=== PATIENT | male | born 1960 | race Caucasian/White ===

== ENCOUNTER 2017-10-22 08:52 | Day surgery (SDC) | END 2017-10-22 12:34 | disposition home or self-care (01) ==

== ENCOUNTER 2019-02-22 17:37 | Inpatient (IN) | payer BC ==
[~2019-02-22] VITALS: Ht 167.6 cm; Wt 83.9 kg
[~2019-02-22 17:37] MED LIST: ATOR40TA68 PO; CLON-339 PO; NIFE100P MC; PANT40TA3 PO; PRED25 PO; TACR1CAP PO; VANCOMYCIN HCL 1.5 GM in SOD CHLORIDE 0.9% 250 ML IVPB SCH
[2019-02-22 17:50] VITALS: Ht 167.6 cm; Wt 83.9 kg
[2019-02-22] MEDS ORDERED: HYDROmorphONE 1 MG/ML SYG IV STA (19:30)
[2019-02-22] MEDS ORDERED: IBUPROFEN 600 MG TAB PO ONE (19:30)
[2019-02-22] MEDS ORDERED: ONDANSETRON 4 MG INJ IV STA (19:30)
[2019-02-22] MEDS ORDERED: CEFEPIME 1GM/50 ML (PMX) 50 ML IVPB ONE (19:30)
[2019-02-22] MEDS ORDERED: ENALAPRILAT 1.25 MG INJ IV ONE (20:00)
[2019-02-22] MEDS ORDERED: OXYCODONE/ACETAMINOPHEN (5/325) TAB PO ONE (20:30)
[2019-02-22] MEDS ORDERED: hydrALAzine 20 MG INJ IV ONE ×2 (21:30)
[2019-02-22 21:45] VITALS: BMI 29.9
--- NOTE | 2019-02-22 21:55 | HP ---
Date/Time of Note Date/Time of Note DATE: 02/22/19 TIME: 21:55 Assessment/Plan VTE Prophylaxis SCD applied (from Nsg): Yes Pharmacological prophylaxis: NA/contraindicated Pharm contraindication: low risk/ambulating Lines/Catheters IV Catheter Type (from Nrsg): Saline Lock Assessment/Plan Hospital Course This is a 58-year male being admitted to the [facility] floor for: #1 left fourth and fifth digit tenosynovitis with cellulitis: X-ray of the hand does not show any signs of abscess or fluid collection. Will obtain a CT study of the upper extremity to further evaluate. Broad-spectrum antibiotics of vancomycin and ceftriaxone. Dr. Alberto of orthopedic surgery has been consulted. #2 Acute on chronic CKD/end-stage renal disease: Patient is a renal transplant patient. He is nonoliguric. He does report his baseline creatinine is 1.5-1.7. Currently elevated at 2.3. Possibly secondary to dehydration, prerenal etiology. Will avoid NSAIDs. Will check renal ultrasound. Urinalysis and microscopic UA. Will hydrate the patient normal saline. Will monitor renal function. . Will check tacrolimus level. We will continue tacrolimus prednisone and CellCept. He did receive enalapril in the ED along with an NSAID, will avoid DARIAN/arm and NSAIDs at the current time. Will consult nep hrology Dr. Bower #3 renal transplant patient: We will check tacrolimus level, continue tacrolimus prednisone and CellCept #4 Hypertensive urgency: Patient did present with blood pressures in the 200s. Resume home clonidine, minoxidil, nifedipine. PRN hydralazine as indicated. Consult nephrology. #5 DVT GI prophylaxis: SCDs, home PPI Further treatment strategy will be implemented as per the clinical course. Result Diagram: 02/22/19192902/22/191929 Results 24hrs Laboratory Tests Test 02/22/19 19:30 White Blood Count 11.6 H Red Blood Count 5.02 Hemoglobin 14.0 Hematocrit 42.5 Mean Corpuscular Volume 84.7 Mean Corpuscular Hemoglobin 27.9 L Mean Corpuscular Hemoglobin Concent 32.9 Red Cell Distribution Width 12.5 Platelet Count 307 Mean Platelet Volume 9.1 Immature Granulocytes % 0.300 Neutrophils % 72.3 Lymphocytes % 14.5 L Monocytes % 10.8 Eosinophils % 1.6 Basophils % 0.5 Nucleated Red Blood Cells % 0.0 Immature Granulocytes # 0.040 H Neutrophils # 8.4 H Lymphocytes # 1.7 Monocytes # 1.3 H Eosinophils # 0.2 Basophils # 0.1 Nucleated Red Blood Cells # 0.0 Sodium Level 141 Potassium Level 3.9 Chloride Level 106 Carbon Dioxide Level 21 Anion Gap 14 H Blood Urea Nitrogen 25 H Creatinine 2.36 H Est Glomerular Filtrat Rate mL/min 29 L Glucose Level 143 Calcium Level 10.6 H HPI/ROS Admit Date/Time Admit Date/Time Hx of Present Illness Chief complaint: Left fifth digit and fourth digit swelling and pain This is a 58-year-old male who presented to the emergency department with complaints of left hand fifth digit and fourth digit swelling and tightness and redness. Patient reports that for the last 3 days he started experiencing left hand fourth and fifth digit redness pain and swelling. He reports that when he flexes his he does feel a pulling sensation along his arm.He denies any fevers. Denies any trauma or injuries to the fingers or hand. He does report that 2 weeks prior to that he also had similar symptoms on his right hand fifth digits which subsequently resolved on their own. He denies any fevers. Patient has a history of renal transplant and he is currently on CellCept prednisone and tacrolimus. He reports that his normal creatinine is approximately 1.5-1.7. Patient did present with systolic blood pressures in the 200. He does report that he takes his medications regularly. He did receive enalapril and clonidine in the ER. We will also give additional hydralazine. Allergies: NKDA Medications: See Nov Const: As per HPI Eyes : No pain discharge or redness or change in visual acuity ENT: No pain, sore throat, congestion, congestion, dysphagia or discharge Respiratory: No shortness of breath, cough, sputum, wheezing, or pleuritic pain Cardiovascular: No chest pain, palpitation, PND, or edema GI : no change in appetite, abdominal pain, nausea, vomiting, diarrhea, constipation, or change in the color his stool Genitourinary: No dysuria, hematuria, flank pain , discharge or CVA tenderness Musculoskeletal: As per HPI Skin: As per HPI Neuro: No headache, dizziness, syncope, seizure, focal weakness Endocrine: No polyuria, polydipsia, temperature intolerance Psych: No hallucination, depression, anxiety or suicidal ideation PMH/Family/Social Past Medical History End-stage renal disease: Status post kidney transplant Hypertension History of dialysis Medications Current Medications Atorvastatin Calcium (Lipitor) 10 mg QHS PO ; Start 02/23/19 at 21:00; Status UNV Pantoprazole (Protonix Tab) 40 mg DAILY PO ; Start 02/23/19 at 09:00; Status UNV Prednisone (Prednisone) 5 mg DAILY PO ; Start 02/23/19 at 09:00; Status UNV Tacrolimus (Prograf) 1 mg Q12 PO ; Start 02/23/19 at 09:00; Status UNV Miscellaneous Information 0.2 mg QHS PO ; Start 02/23/19 at 21:00; Status UNV Nifedipine (Procardia Xl) 30 mg DAILY PO ; Start 02/22/19 at 22:00; Status UNV Vancomycin HCl (Vanco Iv Per Pharmacy) VANCOMYCIN PER PHARMACY PER PROTOCOL XX ; Start 02/22/19 at 22:00; Status UNV Ceftriaxone Sodium 50 ml @ 100 mls/hr Q24H IVPB ; Start 02/22/19 at 22:00; Status UNV Coded Allergies: No Known Allergy (Unverified , 10/22/17) Past Surgical History Left upper extremity AV fistula Family History Significant Family History: no pertinent family hx Social History Alcohol Use: none Smoking Status: Never smoker Drug Use: none Exam/Review of Systems Vital Signs Vitals Vital Signs Date Temp Pulse Resp B/P (MAP) Pulse Ox O2 O2 Flow FiO2 Time Delivery Rate 02/22/19 93 18 202/92 98 Room Air 20:57 (128) 02/22/19 99.1 18:54 Exam Exam General: Patient is a pleasant male currently lying in bed in no acute distress HEENT: Atraumatic, normocephalic. The pupils are equal, round and reactive. Extraocular motor are intact Neck: Supple with full range of motion. No rigidity or meningismus Chest: Nontender Lungs: Clear to auscultation bilaterally no crackles rales or wheezing Heart: Normal S1-S2, Regular rhythm and rate. No murmur, S3, or S4 Abdomen: Surgical scar present along the lower abdomen, soft , nontender, nondistended , bowel sounds are present. No guarding no rebound tenderness , No masses or organomegaly. No costovertebral temporal angle mass Extremities: Normal to inspection, no edema no cyanosis Skin: Previous left upper extremity AV fistula scars. Left fourth and fifth digit swelling, mild erythema noted. No overt signs of underlying abscess no oozing or draining. Neurologic: Normal mental status, speech normal, cranial nerves II through XII are intact, motor and sensory are intact, Additional Comments PROCEDURE: Left hand x-ray CLINICAL INDICATION: Pain and swelling TECHNIQUE: AP, lateral and oblique views of the left hand were obtained. 3 images COMPARISON: None FINDINGS: There are no visible fractures. Bony alignment is normal. Joint spaces are maintained. There is no evidence of focal soft tissue abnormality. IMPRESSION: 1. Radiographically unremarkable left hand. RPTAT:AAJJ Physician Gwyn Date Time Electronically viewed and signed by Physician Gwyn on 02/22/2019 20:57 GW/ CC: ADRIENNE MARIN MD [id number] JEREMY PETERSEN Feb 22, 2019 21:55
[2019-02-22] MEDS ORDERED: VANCOMYCIN IV PER PHARMACY XX SCH (22:00)
[2019-02-22 22:09] VITALS: BP 157/84; PULSE 98; RESP 18
--- NOTE | 2019-02-22 22:19 | ERD ---
ER Documentation Chief Complaint Chief Complaint LEFT ARM/HAND PAIN, LAST WEEK PAIN WAS ON RIGHT HAND/FOOT HPI 58-year-old man complaining of left pinky finger redness, pain, swelling x3 days. He denies direct injury or trauma to the left hand denies previous episodes, he does have a history of renal transplant and is currently using immunosuppressive medications including prednisone, tacrolimus, and mycophenolate acid. ROS All systems reviewed and are negative except as per history of present illness. Medications Home Meds Reported Medications Atorvastatin* (Atorvastatin*) 40 Mg Tablet, 10 MG PO QHS, #30 TAB 10/22/17 Clonidine HCl (Clonidine HCl ER) 0.1 Mg Tab.er.12h, 0.2 MG PO QHS, #30 TAB 10/22/17 Nifedipine (Nifedipine) 100 Gm Powder, 30 GM MC 10/22/17 Prednisone (Prednisone) 2.5 Mg Tab, 5 MG PO, TAB 10/22/17 Tacrolimus* (Tacrolimus*) 1 Mg Capsule, 1 MG PO Q12, CAP 10/22/17 Pantoprazole* (Protonix*) 40 Mg Tablet.dr, 40 MG PO DAILY, TAB 10/22/17 Allergies Allergies: Coded Allergies: No Known Allergy (Unverified , 10/22/17) PMhx/Soc Hypertension, gastritis, renal transplant 2013 currently using kidney transplant rejection prophylaxis History of Surgery: Yes (KIDNEY TRANSPLANT, LEFT ARM SURGERY) Anesthesia Reaction: No Hx Neurological Disorder: No Hx Respiratory Disorders: No Hx Cardiac Disorders: Yes (HYPERTENSION) Hx Psychiatric Problems: No Hx Miscellaneous Medical Probl: Yes (HYPERLIPIDEMIA) Hx Alcohol Use: No Hx Substance Use: No Hx Tobacco Use: No Smoking Status: Never smoker FmHx Family History: No diabetes Physical Exam Vitals Vital Signs Date Temp Pulse Resp B/P (MAP) Pulse Ox O2 O2 Flow FiO2 Time Delivery Rate 02/22/19 99.1 110 20 193/101 98 Room Air 18:54 (131) 02/22/19 99.1 111 20 209/103 98 17:50 (138) Physical Exam Const: Moderate discomfort, febrile Resp: Clear to auscultation bilaterally Cardio: Tachycardic and regular, no murmurs Abd: Soft, non tender, non distended. Normal bowel sounds, no guarding or rigidity Skin: No petechiae or rashes. There is erythema and indurated skin circumferentially over the left pinky finger creeping up toward the dorsal aspect of the left hand, finger is held in a flexed position and tender to touch. No pustules, ulcers, or purulent discharge noted Ext: No cyanosis, or edema, calves symmetrical Neur: Awake and alert x3, no focal deficits or facial asymmetry Psych: Normal Mood and Affect Result Diagram: 02/22/19192902/22/191929 Results 24 hrs Laboratory Tests Test 02/22/19 19:30 White Blood Count 11.6 10^3/ul Red Blood Count 5.02 10^6/ul Hemoglobin 14.0 g/dl Hematocrit 42.5 % Mean Corpuscular Volume 84.7 fl Mean Corpuscular Hemoglobin 27.9 pg Mean Corpuscular Hemoglobin Concent 32.9 g/dl Red Cell Distribution Width 12.5 % Platelet Count 307 10^3/UL Mean Platelet Volume 9.1 fl Immature Granulocytes % 0.300 % Neutrophils % 72.3 % Lymphocytes % 14.5 % Monocytes % 10.8 % Eosinophils % 1.6 % Basophils % 0.5 % Nucleated Red Blood Cells % 0.0 /100WBC Immature Granulocytes # 0.040 10^3/ul Neutrophils # 8.4 10^3/ul Lymphocytes # 1.7 10^3/ul Monocytes # 1.3 10^3/ul Eosinophils # 0.2 10^3/ul Basophils # 0.1 10^3/ul Nucleated Red Blood Cells # 0.0 10^3/ul Sodium Level 141 mmol/L Potassium Level 3.9 mmol/L Chloride Level 106 mmol/L Carbon Dioxide Level 21 mmol/L Anion Gap 14 Blood Urea Nitrogen 25 mg/dl Creatinine 2.36 mg/dl Est Glomerular Filtrat Rate mL/min 29 mL/min Glucose Level 143 mg/dl Calcium Level 10.6 mg/dl Current Medications Medications Dose Sig/Angel Start Time Status Last (Trade) Ordered Route PRN Stop Time Admin Dose Reason Admin 1 mg ONCE STAT 02/22/19 DC 02/22/19 Hydromorphone IV 19:30 19:40 HCl 02/22/19 19:33 (Dilaudid) Ondansetron 4 mg ONCE STAT 02/22/19 DC 02/22/19 HCl (Zofran IV 19:30 19:39 Inj) 02/22/19 19:33 Ibuprofen 600 mg ONCE ONCE 02/22/19 DC 02/22/19 (Motrin) PO 19:30 19:39 02/22/19 19:33 Cefepime HCl 50 ml @ ONCE ONCE 02/22/19 DC 02/22/19 100 mls/hr IVPB 19:30 19:40 02/22/19 19:59 Enalaprilat 1.25 mg ONCE ONCE 02/22/19 DC 02/22/19 (Vasotec Iv) IV 20:00 19:39 02/22/19 20:01 Procedures/MDM IV line was established patient was placed on playground monitor rhythm strip revealed a narrow complex tachycardia at 100 bpm with upright P and T waves. Patient was febrile, blood cultures have been ordered results are pending and I will follow-up. I administered cefepime 1 g IV, ibuprofen 600 mg p.o., hydromorphone 1 mg IV, Zofran 4 mg IV, and enalapril 1.25 mg IV for hypertension. For continued hypertension patient received clonidine 0.1 mg p.o. and for continued pain I administered Percocet 1 tablet p.o. CBC was unremarkable, electrolytes revealed acute kidney injury with a BUN/creatinine of 25/2.4, I suspect this is chronic given he is a renal transplant patient. I spoke to orthopedic surgeon on-call Dr. Alberto regarding the patient's infectious tenosynovitis, he kindly agreed to consult the patient. I do not suspect deep space infection of the hand or wrist. Patient admitted to telemetry setting for continued medical management and IV antibiotics. Departure Diagnosis: Primary Impression: Infectious tenosynovitis Additional Impressions: Hypertension Hypertension type: essential hypertension Qualified Codes: I10 - Essential (primary) hypertension Renal transplant recipient Condition: ADRIENNE Garcias MD Feb 22, 2019 22:19
[2019-02-22] MEDS ORDERED: HYDROmorphONE 1 MG/ML SYG IV PRN (22:30)
[2019-02-22] MEDS ORDERED: TRAZ-111 PO (23:00)
[2019-02-22] MEDS ORDERED: PARO10TA76 PO (23:00)
[2019-02-22] MEDS ORDERED: PANT40TA4 PO (23:00)
[2019-02-22] MEDS ORDERED: MYCO500T3 PO (23:00)
[2019-02-22] MEDS ORDERED: ONDA4SOL PO (23:00)
[2019-02-22] MEDS ORDERED: MINO2.5T16 PO (23:00)
[2019-02-22] MEDS: CEFTRIAXONE 2 GM/50 ML (PMX) 50 ML IVPB SCH (23:07)
[2019-02-22] MEDS: SOD CHLORIDE 0.9% 1,000 ML IV SCH (23:07)
[2019-02-22] MEDS: HYDROCODONE/APAP (10/325) TAB PO SCH (23:27)
[2019-02-22] MEDS: NIFEdipine (XL) 30 MG TAB PO SCH (23:28)
[2019-02-22] MEDS ORDERED: VANCOMYCIN HCL 1.5 GM in SOD CHLORIDE 0.9% 250 ML IVPB SCH (23:30)
[2019-02-23 01:52] VITALS: BP 134/70; PULSE 77; RESP 20
[2019-02-23] MEDS: HYDROCODONE/APAP (10/325) TAB PO SCH (04:28)
[2019-02-23 07:54] VITALS: BP_SYST 141; BP_SYST 165; BP_DIAS 80; PULSE 70; RESP 18
[2019-02-23] MEDS ORDERED: PANTOPRAZOLE (EC) 40 MG TAB PO SCH (09:00)
[2019-02-23] MEDS ORDERED: hydrALAzine 20 MG INJ IV PRN (09:30)
[2019-02-23] MEDS: TACROLIMUS 1 MG CAP PO SCH ×2 (09:38→21:08)
[2019-02-23] MEDS: predniSONE 5 MG TAB PO SCH (09:38)
[2019-02-23] MEDS: PAROXETINE 10 MG TAB PO SCH (09:38)
[2019-02-23] MEDS: MYCOPHENOLATE 250 MG CAP PO SCH ×4 (09:38→21:08)
[2019-02-23] MEDS: PANTOPRAZOLE (EC) 40 MG TAB PO SCH (09:38)
[2019-02-23] MEDS: NIFEdipine (XL) 30 MG TAB PO SCH (09:39)
[2019-02-23] MEDS: MINOXIDIL 2.5 MG TAB PO SCH ×2 (09:39→21:08)
[2019-02-23] MEDS ORDERED: ONDANSETRON 4 MG INJ IV PRN (12:30)
--- NOTE | 2019-02-23 16:03 | PN ---
Date/Time of Note Date/Time of Note DATE: 02/23/19 TIME: 15:58 Assessment/Plan VTE Prophylaxis Risk score (from [facility])>0 risk: 3 SCD applied (from [facility]): Yes Pharmacological prophylaxis: NA/contraindicated Pharm contraindication: low risk/ambulating Lines/Catheters IV Catheter Type (from [place]): Saline Lock Assessment/Plan Hospital Course 1. Left fourth and fifth digit tenosynovitis with cellulitis CT of upper extremity is negative for abscess, cellulitis is noted Continue broad-spectrum antibiotics Dr. Alberto of orthopedic surgery has been consulted. 2. Acute on chronic CKD/end-stage renal disease Patient is a renal transplant patient. Baseline renal function is 1.52.7, currently slightly elevated but improving Continue IV fluids Avoid NSAIDs Renal ultrasound shows mild right-sided hydronephrosis Nephrology consultation obtained Follow-up on tacrolimus level, continue tacrolimus prednisone and CellCept 4. Hypertensive urgency-stable Resume home clonidine, minoxidil, nifedipine. PRN hydralazine as indicated. Consult nephrology. DVT GI prophylaxis: SCDs, home PPI Result Diagram: 02/23/19 0544 02/23/19 0544 Results 24hrs Laboratory Tests Test 02/22/19 19:30 02/23/19 05:44 White Blood Count 11.6 H 11.3 H Red Blood Count 5.02 4.12 L Hemoglobin 14.0 11.6 L Hematocrit 42.5 35.2 L Mean Corpuscular Volume 84.7 85.4 Mean Corpuscular Hemoglobin 27.9 L 28.2 L Mean Corpuscular Hemoglobin Concent 32.9 33.0 Red Cell Distribution Width 12.5 12.8 Platelet Count 307 240 # Mean Platelet Volume 9.1 9.2 Immature Granulocytes % 0.300 0.400 Neutrophils % 72.3 73.9 Lymphocytes % 14.5 L 10.7 L Monocytes % 10.8 13.0 H Eosinophils % 1.6 1.5 Basophils % 0.5 0.5 Nucleated Red Blood Cells % 0.0 0.0 Immature Granulocytes # 0.040 H 0.040 H Neutrophils # 8.4 H 8.3 H Lymphocytes # 1.7 1.2 Monocytes # 1.3 H 1.5 H Eosinophils # 0.2 0.2 Basophils # 0.1 0.1 Nucleated Red Blood Cells # 0.0 0.0 Sodium Level 141 138 Potassium Level 3.9 4.3 Chloride Level 106 109 Carbon Dioxide Level 21 22 Anion Gap 14 H 7 Blood Urea Nitrogen 25 H 27 H Creatinine 2.36 H 2.03 H Est Glomerular Filtrat Rate mL/min 29 L 34 L Glucose Level 143 113 Calcium Level 10.6 H 9.5 Erythrocyte Sedimentation Rate 75 H Hemoglobin A1c 5.3 Magnesium Level 1.9 Total Bilirubin 0.5 Direct Bilirubin 0.00 Indirect Bilirubin 0.5 Aspartate Amino Transf (AST/SGOT) 29 Alanine Aminotransferase (ALT/SGPT) 45 Alkaline Phosphatase 101 Total Protein 6.6 Albumin 3.5 Globulin 3.10 Albumin/Globulin Ratio 1.12 Triglycerides Level 110 Cholesterol Level 141 LDL Cholesterol, Calculated 81 HDL Cholesterol 38 Cholesterol/HDL Ratio 3.7 Thyroid Stimulating Hormone (TSH) 3.800 Subjective 24 Hr Interval Summary Constitutional: no complaints Exam/Review of Systems Exam Vitals Vital Signs Date Temp Pulse Resp B/P (MAP) Pulse Ox O2 O2 Flow FiO2 Time Delivery Rate 02/23/19 98.0 70 18 165/80 99 07:54 (108) 02/23/19 Room Air 01:52 Intake and Output 02/22/19 02/22/19 02/23/19 1515:00 23:00 07:00 IntakeIntake Total 605 ml OutputOutput Total 400 ml BalanceBalance 205 ml Constitutional: alert, oriented Respiratory: clear to auscultation Cardiovascular: regular rate and rhythm Gastrointestinal: soft; No distended Musculoskeletal: nl extremities to inspection Results Results 24hrs Laboratory Tests Test 02/22/19 19:30 02/23/19 05:44 White Blood Count 11.6 H 11.3 H Red Blood Count 5.02 4.12 L Hemoglobin 14.0 11.6 L Hematocrit 42.5 35.2 L Mean Corpuscular Volume 84.7 85.4 Mean Corpuscular Hemoglobin 27.9 L 28.2 L Mean Corpuscular Hemoglobin Concent 32.9 33.0 Red Cell Distribution Width 12.5 12.8 Platelet Count 307 240 # Mean Platelet Volume 9.1 9.2 Immature Granulocytes % 0.300 0.400 Neutrophils % 72.3 73.9 Lymphocytes % 14.5 L 10.7 L Monocytes % 10.8 13.0 H Eosinophils % 1.6 1.5 Basophils % 0.5 0.5 Nucleated Red Blood Cells % 0.0 0.0 Immature Granulocytes # 0.040 H 0.040 H Neutrophils # 8.4 H 8.3 H Lymphocytes # 1.7 1.2 Monocytes # 1.3 H 1.5 H Eosinophils # 0.2 0.2 Basophils # 0.1 0.1 Nucleated Red Blood Cells # 0.0 0.0 Sodium Level 141 138 Potassium Level 3.9 4.3 Chloride Level 106 109 Carbon Dioxide Level 21 22 Anion Gap 14 H 7 Blood Urea Nitrogen 25 H 27 H Creatinine 2.36 H 2.03 H Est Glomerular Filtrat Rate mL/min 29 L 34 L Glucose Level 143 113 Calcium Level 10.6 H 9.5 Erythrocyte Sedimentation Rate 75 H Hemoglobin A1c 5.3 Magnesium Level 1.9 Total Bilirubin 0.5 Direct Bilirubin 0.00 Indirect Bilirubin 0.5 Aspartate Amino Transf (AST/SGOT) 29 Alanine Aminotransferase (ALT/SGPT) 45 Alkaline Phosphatase 101 Total Protein 6.6 Albumin 3.5 Globulin 3.10 Albumin/Globulin Ratio 1.12 Triglycerides Level 110 Cholesterol Level 141 LDL Cholesterol, Calculated 81 HDL Cholesterol 38 Cholesterol/HDL Ratio 3.7 Thyroid Stimulating Hormone (TSH) 3.800 Medications Medication Current Medications Atorvastatin Calcium (Lipitor) 10 mg QHS PO ; Start 02/23/19 at 21:00 Prednisone (Prednisone) 5 mg DAILY PO Last administered on 02/23/19at 09:38; Admin Dose 5 MG; Start 02/23/19 at 09:00 Tacrolimus (Prograf) 1 mg Q12 PO Last administered on 02/23/19at 09:38; Admin Dose 1 MG; Start 02/23/19 at 09:00 Nifedipine (Procardia Xl) 30 mg DAILY PO Last administered on 02/23/19at 09:39; Admin Dose 30 MG; Start 02/22/19 at 22:00 Vancomycin HCl (Vanco Iv Per Pharmacy) VANCOMYCIN PER PHARMACY PER PROTOCOL XX ; Start 02/22/19 at 22:00 Ceftriaxone Sodium 50 ml @ 100 mls/hr Q24H IVPB Last administered on 02/22/19at 23:07; Admin Dose 100 MLS/HR; Start 02/22/19 at 22:00 Hydromorphone HCl (Dilaudid) 1 mg Q4H PRN IV SEVERE PAIN LEVEL 7-10; Start 02/22/19 at 22:30 Sodium Chloride 1,000 ml @ 50 mls/hr Q20H IV Last administered on 02/22/19at 23:07; Admin Dose 50 MLS/HR; Start 02/22/19 at 23:00 Vancomycin HCl 1.25 gm/Sodium Chloride 250 ml @ 83.333 mls/ hr Q36H IVPB ; Start 02/24/19 at 12:00 Clonidine (Catapres) 0.1 mg BID PRN PO PRN SBP > 170; Start 02/23/19 at 09:00 Minoxidil (Loniten) 2.5 mg BID PO Last administered on 02/23/19at 09:39; Admin Dose 2.5 MG; Start 02/23/19 at 09:00 Mycophenolate Mofetil (Cellcept) 250 mg QID PO Last administered on 02/23/19at 14:55; Admin Dose 250 MG; Start 02/23/19 at 09:00 Pantoprazole (Protonix Tab) 40 mg DAILY PO Last administered on 02/23/19at 09:38; Admin Dose 40 MG; Start 02/23/19 at 09:00 Paroxetine HCl (Paxil) 10 mg DAILY PO Last administered on 02/23/19at 09:38; Ad min Dose 10 MG; Start 02/23/19 at 09:00 Trazodone HCl (Desyrel) 50 mg QHS PO ; Start 02/23/19 at 21:00 Hydralazine HCl (Apresoline) 10 mg Q4H PRN IV ELEVATED BLOOD PRESSURE; Start 02/23/19 at 09:30 Acetaminophen/ Hydrocodone Bitart ([place] (10/325)) 1 tab Q6H PRN PO PAIN LEVEL 7-10; Start 02/23/19 at 16:30 Ondansetron HCl (Zofran Inj) 4 mg Q6H PRN IV NAUSEA AND/OR VOMITING; Start 02/23/19 at 12:30 AMELIE PAGAN Feb 23, 2019 16:03
[2019-02-23] MEDS ORDERED: HYDROCODONE/APAP (10/325) TAB PO PRN (16:30)
--- NOTE | 2019-02-23 18:58 | CONS ---
DATE OF ADMISSION: 02/22/2019 DATE OF CONSULTATION: 02/23/2019 TYPE OF CONSULTATION: Nephrology. REASON FOR CONSULTATION: History of chronic kidney disease, history of renal transplant. HISTORY OF PRESENT ILLNESS: This is a 58-year-old male with a past medical history of end-stage idania l disease status post renal transplant in 2012, history of hypertension, who presents to [facility] with swelling of his left 5th digit and redness. The patient stated his symptoms st arted approximately 3 days ago. He started swelling in his left hand with 4th digit redness, pain, a nd swelling. The patient had pain with flexion and extension. He denied any trauma or any prior inj uries. The patient states 2 weeks ago, he had similar symptoms on his right hand 5th digit which sub sequently resolved on its own. Currently, as a result of his worsening symptoms, the patient present ed to the emergency room. Upon arrival, patient was hypertensive, systolic pressures in 200s. [facility] which showed no evidence of gas, evidence of swelling. The pat ient is on antibiotic therapy and admitted to med-surg. In terms of patient's renal history, the patient had a history of renal transplant in 2012. The glen ent states his baseline creatinine is around 1.5 to 1.7 mg/dL. The patient is on triple therapy with prednisone, CellCept, and Prograf. The patient states he is compliant with his immunosuppressive re gimen. He denies any hemoptysis, hematemesis, hematochezia. PAST MEDICAL HISTORY: As stated above, history of end-stage renal disease, history of hypertension, recent history of cellulitis. FAMILY HISTORY: No family history of kidney disease. SOCIAL HISTORY: He does not drink, smoke, or do drugs. MEDICATIONS: The patient's medications have been reviewed. PAST SURGICAL HISTORY: Status post left arm surgery, status post kidney transplant in 2012. REVIEW OF SYSTEMS: A 14-point review of systems was conducted. Pertinent positives stated in HPI, o therwise negative. PHYSICAL EXAMINATION: VITAL SIGNS: Blood pressure is 165/80, respiration 18, pulse 70, temperature 98.0. HEENT: Head is normocephalic. NECK: Supple. HEART: Regular rate. LUNGS: Show diminished breath sounds at the base. ABDOMEN: Soft, nontender to palpation. No rebound or guarding. EXTREMITIES: Negative for clubbing, cyanosis, no edema. DERMATOLOGIC: No rashes. MUSCULOSKELETAL: The patient has noted swelling of the hand. No erythema noted. NEUROLOGIC: No focal deficits. LABORATORY DATA: Laboratory data has been reviewed. IMAGING STUDY: Imaging studies have been reviewed. ASSESSMENT AND PLAN: This is a 58-year-old male who presents with: 1. History of end-stage renal disease status post renal transplant. The patient's baseline creatini ne is ranging between 1.5 and 1.7 mg/dL. Recommendation at this point is to continue current immunos uppressive regimen. We will consider a Prograf level. We will continue to monitor closely. 2. Nonoliguric kidney injury on top of chronic allograft failure with previous baseline creatinine o f 1.5 to 1.7 mg/dL. Etiology of acute kidney injury may be secondary to hemodynamics. The patient's renal function has improved with supportive care. Recommendation is to check urinalysis with microa nalysis, check urine electrolytes. The patient's renal ultrasound was reviewed. Would otherwise con tinue supportive care, renally dose all medications, avoid significant hemodynamic fluctuations. 2. Anemia. Monitor hemoglobin and hematocrit levels. 3. Mineral bone disorder. Monitor calcium and phosphorus levels. 4. Hypertension. Continue current blood pressure regimen. Defer any angiotensin-converting enzyme inhibitor or angiotensin receptor chad at this time. 5. Left hand cellulitis, tenosynovitis. Continue current medical regimen. Follow up with orthopedi cs. 6. General debility. Thank you, ____, for this interesting consult. It will be a pleasure to follow patient with you throughout the hospital course. Dictated By: SYMONE JEFFERY/BOY Conf#: [id number] DID#: [id number] CC: SANDY HDEZ MD;*EndCC*
[2019-02-23] MEDS: SOD CHLORIDE 0.9% 1,000 ML IV SCH (19:00)
[2019-02-23 20:48] VITALS: BP 139/65; PULSE 98; RESP 18
[2019-02-23] MEDS ORDERED: CLONIDINE HCL 0.2 MG PO SCH (21:00)
[2019-02-23] MEDS ORDERED: traZODone 50 MG TAB PO SCH (21:00)
[2019-02-23] MEDS ORDERED: ATORVASTATIN 10 MG TAB PO SCH (21:00)
[2019-02-23] MEDS: CEFTRIAXONE 2 GM/50 ML (PMX) 50 ML IVPB SCH (21:07)
[2019-02-24] MEDS: SOD CHLORIDE 0.9% 1,000 ML IV SCH (05:03)
[2019-02-24 07:33] VITALS: BP 132/62; PULSE 78; RESP 19
[2019-02-24] MEDS: PAROXETINE 10 MG TAB PO SCH (08:16)
[2019-02-24] MEDS: NIFEdipine (XL) 30 MG TAB PO SCH (08:16)
[2019-02-24] MEDS: MINOXIDIL 2.5 MG TAB PO SCH (08:16)
[2019-02-24] MEDS: PANTOPRAZOLE (EC) 40 MG TAB PO SCH (08:16)
[2019-02-24] MEDS: predniSONE 5 MG TAB PO SCH (08:16)
[2019-02-24] MEDS: TACROLIMUS 1 MG CAP PO SCH (08:16)
[2019-02-24] MEDS: MYCOPHENOLATE 250 MG CAP PO SCH ×3 (08:16→16:44)
[2019-02-24] MEDS ORDERED: CEPH500C PO (10:10)
--- NOTE | 2019-02-24 10:11 | PDOCDIS ---
Discharge Instructions CONDITION [id number] Patient Condition: [id number] Good HOME CARE INSTRUCTIONS: [id number] Diet Instructions: [id number] FOLLOW UP/APPOINTMENTS Follow-up Plan pcp 1 week SANDY HDEZ MD Feb 24, 2019 10:11
[2019-02-24] MEDS ORDERED: VANCOMYCIN HCL 1.25 GM in SOD CHLORIDE 0.9% 250 ML IVPB SCH (12:00)
[2019-02-24 15:58] VITALS: BP 142/78; PULSE 82; RESP 18
--- NOTE | 2019-02-24 21:03 | PN ---
DATE: 02/24/2019 SUBJECTIVE: The patient is stable, no events overnight. OBJECTIVE: VITAL SIGNS: Blood pressure is 132/62, pulse 78, respiration 19, temperature 98.2. HEENT: Head is normocephalic. NECK: Supple. HEART: Regular rate. LUNGS: Show diminished breath sounds at the base. ABDOMEN: Soft, nontender to palpation without rebound or guarding. EXTREMITIES: Negative for clubbing, cyanosis, no edema. DERMATOLOGIC: No rashes. MUSCULOSKELETAL: No joint effusion. NEUROLOGIC: No change in exam. MEDICATIONS: Have been reviewed. LABORATORY DATA: Has been reviewed. ASSESSMENT AND PLAN: 1. Nonoliguric acute kidney injury on top of chronic allograft failure with previous baseline creati nine of 1.5 to 1.7 mg/dL. Etiology of acute kidney injury is secondary to hemodynamics. Renal funct ion is improved with volume expansion. At this point, continue current treatment plan, supportive ca re, renally dose all medication. 2. History of end-stage renal disease status post renal transplant. Patient's renal function appear s to be returning back to baseline. Continue current immunosuppressive regimen. 3. Anemia. Monitor hemoglobin and hematocrit levels. 4. Mineral bone disorder. Monitor calcium and phosphorus levels. 5. Hypertension. Continue current blood pressure regimen. 6. Left hand cellulitis, tenosynovitis. Continue current antibiotic regimen. Follow up with orthop edics. Dictated By: SYMONE JEFFERY/BOY Conf#: [id number] DID#: [id number] CC: SANDY HDEZ MD;*EndCC*
--- NOTE | 2019-02-25 10:23 | CONS ---
DATE OF ADMISSION: 02/22/2019 DATE OF CONSULTATION: 02/23/2019 HISTORY OF PRESENT ILLNESS: The patient is a 58-year-old male who was admitted on the February 08 when he came in to the emergency room complaining of painful swelling involving his left hand. H is painful swelling started about 3 days prior to his admission. Denies any fever or chills and dandy es any history of infection as well in the body. He denies any fever or chills and He denies any hi story of memorable trauma involving the left hand. Of interest is that he had a similar problem in h is right hand in the past, which resolved without any medical care. He had a kidney transplant for his end-stage renal disease and is on immunosuppressive medications, s uch as CellCept, prednisone, and tacrolimus. PHYSICAL EXAMINATION: GENERAL: My examination revealed a 58-year-old male who was not in any acute distress. He is afebri le at the time of my evaluation, and he has mild leukocytosis with a WBC count of 11,600. EXTREMITIES: There was a mild swelling of the area of left fifth metacarpal. There also was a swell ing over the thenar area of the left thumb. Range of motion of the left thumb and left little finger was minimally painful. However, there was obvious swelling in the thenar area and ulnar aspect of t he left palm over the area of the left fifth metacarpal. IMAGING STUDIES: X-rays of the left hand were essentially within normal limits. DIAGNOSTIC IMPRESSION: Painful swelling of the left hand; however, thenar eminence and the ulnar willie e of the palm along the course of left fifth metacarpal. Rule out abscess, rule out tenosynovitis of the flexor tendons over the area. RECOMMENDATIONS FOR MANAGEMENT: 1. Continue IV antibiotics. 2. MRI scan of the left hand to rule out possible tenosynovitis and/or abscess. Dictated By: ROSARIO PATEL/BOY Conf#: [id number] DID#: [id number] CC: WILLIE HDEZ MD;*EndCC*
--- NOTE | 2019-02-25 10:51 | DS ---
DATE OF ADMISSION: 02/22/2019 DATE OF DISCHARGE: 02/24/2019 DISCHARGE DIAGNOSES: A 58-year-old male with: 1. Left fourth and fifth digit tenosynovitis. 2. Kdgjp-zj-ziwqicx kidney disease, resolved. 3. Stage 3 chronic kidney disease. 4. Status full renal transplant. 5. Hypertensive urgency, resolved. HOSPITAL COURSE: A 58-year-old male presented to emergency room with left hand pain and swelling. H e was diagnosed with fourth and fifth digit tenosynovitis and associated cellulitis. The x-ray was u nremarkable. A CAT scan of hand did not show any evidence of fluid collection or abscess. Soft tiss ue edema was noted. The patient was seen in consultation by Dr. Butler. An MRI of the hand was recomme nded. The study is pending. The patient is status post renal transplant. He was noted to have acute kidney injury with a creatin ine of 2.36. His baseline creatinine is 1.5 to 1.7. He was seen in consultation by credit collections clerk. T he renal function improved over the next 2 days. On the day of discharge, BUN was 24 and creatinine was 1.61. Immunosuppressants were continued. The patient is in a stable condition for discharge if MRI of the hand is unremarkable. I prescribed 7 days of Keflex. MEDICATIONS ON DISCHARGE: 1. Keflex 500 mg p.o. q.8 hours x7 days. 2. Lipitor 10 mg p.o. at bedtime. 3. Clonidine 0.2 mg p.o. at bedtime. 4. Minoxidil 2.5 mg b.i.d. 5. Mycophenolate 250 mg q.i.d. 6. Protonix 40 mg daily. 7. Paroxetine 10 mg daily. 8. Prednisone 2.5 mg daily. 9. Tacrolimus 1 mg q.12 hours. 10. Trazodone 50 mg at bedtime. 11. Nifedipine. DISCHARGE FOLLOWUP: Followup with PCP in 1 week. Dictated By: SANDY MCKEON/NTS Conf#: [id number] DID#: [id number] CC: ROSARIO BUTLER MD; SYMONE SO DO;*EndCC*
[2019-02-25] MEDS ORDERED: VANCOMYCIN 1 GM 250 ML IVPB SCH (12:00)
== END 2019-02-24 17:40 | disposition home or self-care (01) | DRG 558 ==
LOC: E/R 17:37 → MS1 20:20
PROVIDERS: ADMIT Internal Medicine; ATTEND Internal Medicine
DX: M65.842 Other synovitis and tenosynovitis, left hand (principal); Z94.0 Kidney transplant status; N17.9 Acute kidney failure, unspecified; N18.3 Chronic kidney disease, stage 3 (moderate); I16.0 Hypertensive urgency; I12.9 Hypertensive chronic kidney disease with stage 1 through stage 4 chronic kidney disease, or unspecified chronic kidney disease; E78.5 Hyperlipidemia, unspecified; D64.9 Anemia, unspecified; K29.50 Unspecified chronic gastritis without bleeding
CPT/HCPCS: 36415; 73200; 73218; 76775; 80048; 80053; 80061; 80197; 81001; 81003; 82043; 82570; 83036; 83735; 84155; 84300; 84443; 85025; 85651; 86140; 96374; 96375; J0360; J0692; J0696; J1170; J2405; J3370; J7030; J7050; J7507; J7512; J7517